=== PATIENT | female | born 1990 | race Caucasian/White ===

== ENCOUNTER 2017-08-24 20:44 | Emergency (ER) | payer BC, SELFPAY | END 2017-08-24 23:06 | disposition home or self-care (01) | PROVIDERS: Emergency Provider Emergency Medicine; Visit Provider Emergency Medicine | DX: O20.0 Threatened abortion (principal); D64.9 Anemia, unspecified | CPT/HCPCS: 80053; 81001; 81025; 84702; 85025; 86850; 86900; 86901; 87086; 99283 ==

== ENCOUNTER → 2017-08-26 | Outpatient (CLI) | payer BC, SELFPAY | PROVIDERS: Visit Provider Nurse Practitioner Obstetrics & Gynecology | DX: Z32.00 Encounter for pregnancy test, result unknown (principal) | CPT/HCPCS: 36415; 84702 ==

== ENCOUNTER → 2017-10-26 12:38 | Outpatient (CLI) | payer BC, SELFPAY ==
[2017-10-26 13:08] LABS: Basophils % 0.4 % (0.1-2.0); Eosinophils % 0.4 % (0.1-12.0); Hematocrit 39.3 % (37.0-47.0); Hemoglobin 12.9 g/dL (12.2-16.2); Lymphocytes # 1.7 K/mm3 (0.7-4.5); Lymphocytes % 24.2 K/mm3 (10-50); Mean Corpuscular HGB Conc 32.8 g/dL (31.8-35.4); Mean Corpuscular Hemoglobin 28.7 pg (27.0-31.2); Mean Corpuscular Volume 87.4 fl (81-99); Mean Platelet Volume 9.2 fl (7.4-10.4); Monocytes # 0.3 K/mm3 (0.1-1.0); Monocytes % 4.5 % (1.7-9.3); Neutrophils # 4.9 K/mm3 (1.8-7.8); Neutrophils % 70.5 % (37.0-80.0); Platelet Count 226 K/mm3 (142-424); Red Blood Count 4.49 M/mm3 (4.20-5.40); Red Cell Distribution Width 12.5 % (11.5-17.5)
[2017-10-27 07:15] LABS: HIV Screen 4th Generation wRfx Non Reactive (Non Reactive)
[2017-10-27 10:39] LABS: Hepatitis B Surface Antigen Negative (Negative); Hepatitis C Antibody <0.1 s/co ratio (0.0-0.9); Rapid Plasma Reagin Ab Titer Non Reactive (NonRea<1:1); Rubella Antibodies, IgG 1.39 index (Immune >0.99)
== END ==
PROVIDERS: PCP Internal Medicine Adolescent Medicine; Visit Provider Nurse Practitioner Obstetrics & Gynecology
DX: Z34.90 Encounter for supervision of normal pregnancy, unspecified, unspecified trimester (principal)
CPT/HCPCS: 36415; 85025; 86592; 86703; 86762; 86850; 87340; 87380; G0432

== ENCOUNTER → 2017-11-02 14:01 | Outpatient (CLI) | payer BC, SELFPAY ==
--- NOTE | 2017-11-02 14:10 | US_ITS ---
US OB transvaginal HISTORY: ITS.REASON: US OB- Dates ORDERING PHYSICIAN: Gigi Edmonds MD PATIENT AGE: 27 years COMPARISON: None FINDINGS: An intrauterine gestational sac is present with a pole with a crown-rump length of 0.36cm correlating to gestational age of 6w1d. heart tones are present with an FHR of 117 bpm's. Yolk sac is noted. . Adnexa: Unremarkable. IMPRESSION: Live intrauterine gestation at 6 weeks 1 day with an estimated due date of 06/27/2018
== END ==
PROVIDERS: PCP Internal Medicine Adolescent Medicine; Visit Provider Nurse Practitioner Obstetrics & Gynecology
DX: O26.841 Uterine size-date discrepancy, first trimester (principal)
CPT/HCPCS: 76830

== ENCOUNTER → 2017-12-23 17:48 | Outpatient (REF) | payer BC, SELFPAY ==
[2017-12-26 20:10] LABS: Neisseria gonorrhoeae, NAA Negative (Negative)
== END ==
LOC: LAB 17:48
PROVIDERS: Visit Provider Nurse Practitioner Obstetrics & Gynecology
DX: Z34.90 Encounter for supervision of normal pregnancy, unspecified, unspecified trimester (principal)
CPT/HCPCS: 87491; 87591

== ENCOUNTER → 2018-01-18 15:58 | Outpatient (CLI) | payer BC, SELFPAY ==
[2018-01-22 01:08] LABS: AFP Value 39.1 ng/mL (.); DIA MoM 1.07 (.); DIA Value 174.88 pg/mL (.); DSR (Second Trimester) 1 IN 6546 (.); Gest. Age on Collection Date 17.3 WEEKS (.); Maternal Age At EDD 26.9 yr (.); OSBR Risk 1 IN 10000 (.); Results Report (.); hCG Value 29730 mIU/mL (.); uE3 Value 1.28 ng/mL (.)
[2018-01-22 20:09] LABS: Gestat. Age Based On EDD (.)
== END ==
PROVIDERS: PCP Internal Medicine Adolescent Medicine; Visit Provider Nurse Practitioner Obstetrics & Gynecology
DX: Z34.90 Encounter for supervision of normal pregnancy, unspecified, unspecified trimester (principal)
CPT/HCPCS: 36415; 82106

== ENCOUNTER → 2018-02-08 12:48 | Outpatient (CLI) | payer BC, SELFPAY ==
--- NOTE | 2018-02-08 12:50 | US_ITS ---
US OB /maternal detail: INDICATION: ITS.REASON: US OB Complete ORDERING PHYSICIAN: Gigi Edmonds MD PATIENT AGE: 27 years TECHNIQUE: ultrasound transabdominal scanning. COMPARISON: No previous relevant studies. FINDINGS: Single viable intrauterine gestation. Breech position. Placenta: Anterior placenta grade 1. There is average amount fluid. The cervix appears satisfactory. Closed and measuring 3 cm in length. Complete survey performed and was unremarkable on the submitted images as in PACS. No discrete anomalies identified on survey imaging by technologist. Active fetus. Three-vessel cord with satisfactory umbilical cord insertion. 4- chamber heart noted. Survey of brain & ventricles unremarkable. Face and neck survey unremarkable. Diaphragm and chest views unremarkable. Abdomen: Both kidneys noted and unremarkable. Stomach noted and satisfactory. Spine: Survey of the spine satisfactory with no anomalies identified nor imaged. Both arms and legs noted. Amniotic Fluid: Adequate. Maternal adnexa: No significant findings. Measurements: Average ultrasound age 20w3d. Gestational Age 20w1d. Estimated due date by ultrasound age 1006/25/2018. Estimated weight 353 grams. 62nd percentile based on estimated due date BPD = 20w2d OFD = 21w5d HC = 20w3d AC = 21w0d FL = 20w0d Heart Rate = 142 bpm Cerebellum = 20w0d Humerus = 20w6d HC/AC is 1.14 (1.09-.126). CI is 72% (70-86%). FL/BPD is 68%. FL/AC is 20%. IMPRESSION: Single live fetus in breech presentation with average ultrasound age of 20 weeks and 3 days. No obvious anomalies. All parameters correlate. Please see above for detail
== END ==
PROVIDERS: PCP Internal Medicine Adolescent Medicine; Visit Provider Nurse Practitioner Obstetrics & Gynecology
DX: Z36.0 Encounter for antenatal screening for chromosomal anomalies (principal)
CPT/HCPCS: 76811

== ENCOUNTER 2018-04-07 10:49 | Outpatient (CLI) | payer BC, SELFPAY ==
[2018-04-07 10:59] VITALS: BP 113/72; PULSE 84; RESP 18; TEMP 36.2; O2SAT 100; BMI 29.0
[2018-04-07 11:11] LABS: Microscopic, Urine URINE MICROSCOPIC (MICROSCOPIC)
[2018-04-07 11:25] LABS: Appearance,Urine CLEAR (Clear); Bilirubin,Urine Negative (Negative); Blood, Urine Negative (Negative); Color,Urine YELLOW (Yellow); Glucose,Urine (UA) Negative (Negative); Ketones,Urine Negative (Negative); Leukocyte Esterase,Urine Negative (Negative); Nitrate,Urine Negative (Negative); PH,Urine 7.5 (5.0-8.5); Protein,Urine Negative (Negative); Urobilinogen,Urine 0.2 EU/dl (0.2)
--- NOTE | 2018-04-07 11:30 | HMH.ACPN2 ---
Internal Medicine - PN: Subj *Date: 04/07/18 *Time: 11:30 Interval history: She is 28 weeks gestational age feeling pelvic pressure. She denies any contractions. Her urinalysis is negative for a urinary tract infection. The nonstress test is reactive. Exam Vital signs and Labs for Last 24 Hours: Temp Pulse Resp BP Pulse Ox 97.2 F L 84 18 113/72 100 04/07/18 10:59 04/07/18 10:59 04/07/18 10:59 04/07/18 10:59 04/07/18 10:59 Laboratory Results - last 24 hr 04/07/18 11:01: Urine Color Yellow, Urine Appearance Clear, Urine pH 7.5, Ur Specific [place] 1.010, Urine Protein Negative, Urine Glucose (UA) Negative, Urine Ketones Negative, Urine Blood Negative, Urine Nitrate Negative, Urine Bilirubin Negative, Urine Urobilinogen 0.2, Ur Leukocyte Esterase Negative I & O for Last 24 hours: Intake & Output 04/04/18 04/05/18 04/06/18 04/07/18 11:59 11:59 11:59 11:59 Weight 164 lb - Constitutional no acute distress Assessment and Plan (1) False labor before 37 completed weeks of gestation Current visit: Yes Status: Acute Category: Medical Code(s): O47.00 - False labor before 37 completed weeks of gestation, unspecified trimester - Assessment and plan all Dx Assessment and Plan for all problems:: Since she is not having contractions and she has not changed her cervix we will go ahead and send her home. She will follow-up with me in 2 weeks time.
[2018-04-07 11:57] LABS: WBC,Urine Occasional #/hpf (0-3)
[2018-04-07 11:58] LABS: Bacteria,Urine Trace /lpf; Squamous Epithelial Cell,Urine TNTC #/hpf (0-5)
== END 2018-04-07 11:35 | disposition home or self-care (01) ==
LOC: OBOUT 10:50 → OB 10:52
PROVIDERS: PCP Nurse Practitioner Obstetrics & Gynecology; Visit Provider Nurse Practitioner Obstetrics & Gynecology
DX: O26.893 Other specified pregnancy related conditions, third trimester (principal); Z3A.28 28 weeks gestation of pregnancy; R10.2 Pelvic and perineal pain
CPT/HCPCS: 59025; 81001

== ENCOUNTER → 2018-05-31 17:43 | Outpatient (REF) | payer BC, SELFPAY | LOC: LAB 17:43 | PROVIDERS: Visit Provider Nurse Practitioner Obstetrics & Gynecology | DX: Z34.90 Encounter for supervision of normal pregnancy, unspecified, unspecified trimester (principal); Z3A.36 36 weeks gestation of pregnancy | CPT/HCPCS: 86403 ==

== ENCOUNTER 2018-06-06 20:18 | Observation (INO) ==
[2018-06-06 20:35] LABS: Microscopic, Urine URINE MICROSCOPIC (MICROSCOPIC)
[2018-06-06 20:38] LABS: Appearance,Urine CLEAR (Clear); Bilirubin,Urine Negative (Negative); Blood, Urine Negative (Negative); Color,Urine YELLOW (Yellow); Glucose,Urine (UA) Negative (Negative); Ketones,Urine Negative (Negative); Leukocyte Esterase,Urine Negative (Negative); PH,Urine 7.5 (5.0-8.5); Protein,Urine Negative (Negative); Specific Gravity, Urine 1.015 (1.005-1.030); Urobilinogen,Urine 0.2 EU/dl (0.2)
[2018-06-06 20:59] VITALS: BP 128/100
--- NOTE | 2018-06-10 13:20 | H&P/Discharge Summary ---
General - General Admission date:: 06/06/18 Discharge date: 06/07/18 *Admission Date: 06/06/18 *Chief complaint: Contraction *History of present illness: She is a 27-year-old lady at 37 weeks who complains of contractions. She was having irregular contractions and as result of that was admitted overnight. [facility] History I have reviewed the patient's past medical history: Yes Other Surgeries: Yes: No Previous Surgery. No: Amputation: No Fractures: No - *Social History Smoking Status: Never smoker Alcohol Intake: never Substance Use Type: denies use *Family Hx:: Hypertension Para: 2 Review of Systems - Review of Systems Review of systems:: pertinent systems reviewed and negative unless documented below Exam Vital signs and Labs for Last 24 Hours: Temp Pulse Resp BP Pulse Ox 98.2 F 96 H 19 128/100 H 95 06/06/18 20:55 06/06/18 20:55 06/06/18 20:55 06/06/18 20:55 06/06/18 20:55 Laboratory Results - last 24 hr 06/06/18 20:25: Urine Color Yellow, Urine Appearance Clear, Urine pH 7.5, Ur S pecific [place] 1.015, Urine Protein Negative, Urine Glucose (UA) Negative, Urine Ketones Negative, Urine Blood Negative, Urine Nitrate Negative, Urine Bilirubin Negative, Urine Urobilinogen 0.2, Ur Leukocyte Esterase Negative, Ur Squamous Epith Cells 10-20 I & O for Last 24 hours: Intake & Output 06/04/18 06/05/18 06/06/18 06/07/18 11:59 11:59 11:59 11:59 Weight 182 lb - Constitutional no acute distress - *Routine HEENT Exam Head: Present: normocephalic Eye: Present: EOMI, PERRL ENT: Present: mucous membranes moist - *Routine Neck Exam Present: supple, full ROM - *Routine Respiratory Exam Absent: accessory muscle use (good air entry bilaterally), wheezes, crackles - *Routine Cardiovascular Exam Present: RRR. Absent: murmur - *Routine Abdominal Exam Present: soft, normoactive bowel sounds. Absent: tenderness, rebound, guarding, mass - *Routine Rectal Exam Patient deferred: visual exam, digital exam - *Routine Exam Patient deferred: external exam, groin exam, perineal exam - *Routine Extremities Exam Present: full ROM. Absent: cyanosis, edema, calf tenderness - *Routine Skin Exam Present: intact (good color) - *Routine Neurological Exam Present: alert, oriented X3 - Routine Psychiatric Exam Present: normal affect Hospital Course Hospital Course: She received IV fluids as well as 1 dose of Brethine. She settled her contractions. She found to be 3 cm dilated for percent Station -2. Her contractions have now stopped and we are discharging her home to follow-up with me next week. Results Labs on day of discharge: Labs from last 24 hours 06/06/18 20:25 Urine Color Yellow Urine Appearance Clear Urine pH 7.5 Ur Specific [place] 1.015 Urine Protein Negative Urine Glucose (UA) Negative Urine Ketones Negative Urine Blood Negative Urine Nitrate Negative Urine Bilirubin Negative Urine Urobilinogen 0.2 Ur Leukocyte Esterase Negative Ur Squamous Epith Cells 10-20 DS: Diagnosis - Discharge Diagnosis (1) False labor before 37 completed weeks of gestation Status: Acute Discharge Medications - Medications for Discharge Home Medication List at Discharge: No Action pantoprazole 20 mg tablet,delayed release 20 mg PO DAILY 30 Days #30 tab pediatric multivitamin no.76 chewable tablet 1 tab PO DAILY ferrous sulfate 325 mg (65 mg iron) tablet,delayed release 325 mg PO DAILY Disposition Disposition: Home, Self-Care
== END 2018-06-07 09:30 | disposition home or self-care (01) ==
LOC: OBOUT 20:18 → OB 20:18
PROVIDERS: ADMIT Nurse Practitioner Obstetrics & Gynecology; ATTEND Nurse Practitioner Obstetrics & Gynecology
CPT/HCPCS: 59025; 81001; 96360; 96372; G0378

== ENCOUNTER 2018-06-22 02:30 | Inpatient (IN) ==
[2018-06-22 05:48] LABS: Basophils % 0.4 % (0.1-2.0); Eosinophils # 0.1 K/mm3 (0.0-0.4); Eosinophils % 0.6 % (0.1-12.0); Hemoglobin 10.5 g/dL (12.2-16.2); Lymphocytes # 2.4 K/mm3 (0.7-4.5); Mean Corpuscular Volume 78.1 fl (81-99); Mean Platelet Volume 9.9 fl (7.4-10.4); Monocytes # 0.6 K/mm3 (0.1-1.0); Monocytes % 5.2 % (1.7-9.3); Neutrophils # 7.9 K/mm3 (1.8-7.8); Neutrophils % 71.8 % (37.0-80.0); Platelet Count 218 K/mm3 (142-424); Red Blood Count 4.22 M/mm3 (4.20-5.40); Red Cell Distribution Width 15.7 % (11.5-17.5); White Blood Count 11.1 K/mm3 (4.8-10.8)
[2018-06-22 08:03] VITALS: BP 123/83
--- NOTE | 2018-06-22 08:24 | History & Physical Report ---
OB - H&P: HPI Antepartum - History of Present Illness Chief complaint: Term , irregular contractions History of present illness: She is a 27-year-old 3 para 2 who is 39+ weeks gestational age. She is been having irregular contractions and was found to be 3-4 cm in my office. As result of that we elected to augment her labor. - History of Present Criteria for establishing EDC:: LMP confirmed by 1st trimester US care: good care Ultrasounds: normal 1st trimester US, normal mid trimester US Obstetrical complications: none [facility] History I have reviewed the patient's past medical history: Yes Other Surgeries: Yes: No Previous Surgery. No: Amputation: No Fractures: No - *Social History Smoking Status: Never smoker Alcohol Intake: never Substance Use Type: denies use *Family Hx:: Hypertension Para: 2 Review of Systems - Review of Systems Review of systems:: pertinent systems reviewed and negative unless documented below Meds Home Medications Medication Instructions Recorded Confirmed Type pediatric multivitamin no.76 1 tab PO DAILY 02/16/18 06/22/18 History chewable tablet pantoprazole 20 mg tablet,delayed 20 mg PO DAILY 30 Days #30 tab 05/11/18 06/22/18 History release ferrous sulfate 325 mg (65 mg 325 mg PO DAILY 06/06/18 06/22/18 History iron) tablet,delayed release Allergies Allergy/AdvReac Type Severity Reaction Status Date / Time No Known Allergies Allergy Verified 06/14/18 15:42 NO KNOWN ALLERGIES - NKA Allergy Mild Uncoded 06/14/18 15:42 OB - H&P: Exam - Physical Exam Vital signs: Temp Pulse Resp BP Pulse Ox 98.8 F 84 18 123/83 98 06/22/18 07:20 06/22/18 07:20 06/22/18 07:20 06/22/18 07:20 06/22/18 07:20 - Constitutional no acute distress - Routine HEENT Exam Head: Present: normocephalic Eye: Present: EOMI, PERRL ENT: Present: mucous membranes moist - Routine Neck Exam Present: supple, full ROM - Routine Respiratory Exam Absent: accessory muscle use (good air entry bilaterally), respiratory distress, wheezes, crackles - Routine Cardiovascular Exam Present: RRR. Absent: murmur - Routine Abdominal Exam Present: soft, normoactive bowel sounds. Absent: tenderness, distended, guarding - Routine Rectal Exam Patient deferred: visual exam, digital exam - Routine Exam Patient deferred: external exam, groin exam, perineal exam - Routine Extremities Exam Present: full ROM. Absent: cyanosis, edema - Routine Skin Exam Present: intact. Absent: cyanosis - Routine Neurological Exam Present: alert, oriented X3 - Routine Psychiatric Exam Present: normal affect OB - Results - Labs Labs: Short CBC 06/22/18 Range/Units 05:38 WBC 11.1 H (4.8-10.8) K/mm3 Hgb 10.5 L (12.2-16.2) g/dL Hct 33.0 L (37.0-47.0) % Plt Count 218 (142-424) K/mm3 OB - A/P Antepartum (1) Normal delivery Current visit: Yes Status: Acute - Additional Plan Planning to breastfeed?: Yes Plan: other Additional Information:: She is now 39+ weeks gestational age and has been admitted on a couple of occasions with labor and irregular contractions. She is 4-5 cm now and we have just ruptured her membranes. We expect a vaginal delivery.
--- NOTE | 2018-06-22 10:22 | Progress Note ---
Labor Note - Subjective: Date: 06/22/18 Time: 10:21 regular contraction - Objective: NST:: Reactive Contractions:: every 2-3 minutes Cervical Dilation:: 5 Effacement:: 100% Station: 0 Membranes: artificially ruptured - Fetus: Monitoring?: Yes monitoring type:: Internal and External - Assessment: Labor progressing?: Yes Cephalopelvic disproportion?: No Patient Problems: All Active Problems False labor before 37 completed weeks of gestation (Acute) Normal delivery (Acute) (Acute) - Plan: Anesthesia for epidural?: Yes Continue to labor down?: Yes Plan for ?: No Continue to monitor?: Yes Start pushing?: No
--- NOTE | 2018-06-22 11:45 | Procedure Note ---
- Delivery Note Delivery Date:: 06/22/18 Delivery Time:: 11:33 Anesthesia Type: Epidural Was labor medically induced?: No Infant delivered prior to 39 weeks?: No Infant Gender: Male at 1 minute: 9 at 5 minutes: 9 AF:: Clear fluid Delivery Procedure:: She is a 27-year-old 4 para 2 aborta 1 who was 39+ weeks gestational age. She was having irregular contractions and was found to be 3-4 cm in my office. As result of that we offered her augmentation. She had her membranes ruptured and was augmented with oxytocin. She progressed under labor epidural to full dilation and delivered spontaneously a live born male child at 11:33 AM on the morning of June 19 is an 18. On deliver the head it was noted that there was a loose nuchal cord which was easily reduced. This was followed by the rest of the infant's body atraumatically. The oropharynx and nasopharynx were bulb suctioned. The baby cried spontaneously. The baby was vigorous and we allowed the cord to continue to pulsate for proximally 1 minute. The cord was then doubly clamped and cut. Baby was then placed on the mother's abdomen for further care. The nurses assigned Apgars of 9 at 1 minute and 9 at 5 minutes. We then obtained cord blood as well as cord pH. The patient was to be oxytocin and using gentle traction on the cord and countertraction on the fundus I was able to easily deliver the placenta intact. It had a normal three-vessel cord. There were no perineal or vaginal lacerations. She has O+ blood, she is rubella immune and was group B Streptococcus negative. She plans to breast-feed. Her estimated blood loss was approximately 400 cc. Placental Delivery Description: Spontaneous
--- NOTE | 2018-06-22 11:57 | Progress Note ---
[facility] Anesthesia Checklist - Structural Data Admitted From: Inpatient Planned Operative Procedure/s: labor epidural Consent for Planned Operative Procedure(s) Verified: Yes - Airway Assessment C-Spine Mobility Assessed: Yes TMJ Mobility Assessed: Yes Dentition: Good Dentition - Neurological Assessment Level of Consciousness: Awake, Alert, Appropriate - Anesthesia Plan Anesthesia Risk discussed: Yes Anesthesia Plan: Verified ASA Class: II Anesthesia Type: Epidural [facility] History I have reviewed the patient's past medical history: Yes Other Surgeries: Yes: No Previous Surgery. No: Amputation: No Fractures: No - *Social History Smoking Status: Never smoker Alcohol Intake: never Substance Use Type: denies use *Family Hx:: Hypertension Para: 2
[2018-06-22 14:11] LABS: Microscopic, Urine URINE MICROSCOPIC (MICROSCOPIC)
[2018-06-22 14:22] LABS: Appearance,Urine CLEAR (Clear); Bilirubin,Urine Negative (Negative); Blood, Urine TRACE-L (Negative); Color,Urine YELLOW (Yellow); Glucose,Urine (UA) Negative (Negative); Ketones,Urine Negative (Negative); Leukocyte Esterase,Urine Negative (Negative); PH,Urine 7.5 (5.0-8.5); Protein,Urine Negative (Negative); Urobilinogen,Urine 0.2 EU/dl (0.2)
[2018-06-22 14:34] LABS: Bacteria,Urine Trace /lpf; Squamous Epithelial Cell,Urine Occasional #/hpf (0-5)
[2018-06-23 06:11] LABS: Hematocrit 26.7 % (37.0-47.0)
[2018-06-23 06:17] LABS: Hemoglobin 8.7 g/dL (12.2-16.2)
--- NOTE | 2018-06-23 08:42 | Progress Note ---
Internal Medicine - PN: Subj *Date: 06/23/18 *Time: 08:41 Interval history: She continues to do well. She is eating and drinking and ambulating. She is breast-feeding. Her lochia is normal. Exam Vital signs and Labs for Last 24 Hours: Temp Pulse Resp BP Pulse Ox 98.8 F 84 18 123/83 98 06/22/18 07:20 06/22/18 07:20 06/22/18 07:20 06/22/18 07:20 06/22/18 07:20 Laboratory Results - last 24 hr 06/22/18 09:00: Urine Color Yellow, Urine Appearance Clear, Urine pH 7.5, Ur Specific [place] 1.010, Urine Protein Negative, Urine Glucose (UA) Negative, Urine Ketones Negative, Urine Blood Trace-l, Urine Nitrate Negative, Urine Bilirubin Negative, Urine Urobilinogen 0.2, Ur Leukocyte Esterase Negative, Urine RBC None, Urine WBC 3-5, Ur Squamous Epith Cells Occasional, Urine Bacteria Trace 06/22/18 11:46: Cord ABG pH 7.39 06/23/18 05:38: Hgb 8.7 L D, Hct 26.7 L I & O for Last 24 hours: Intake & Output 06/20/18 06/21/18 06/22/18 06/23/18 11:59 11:59 11:59 11:59 Weight 183 lb Assessment and Plan (1) Normal delivery Current visit: Yes Status: Acute Category: Medical Code(s): O80 - Encounter for full-term uncomplicated delivery - Assessment and plan all Dx Assessment and Plan for all problems:: She is doing well this morning. We will plan to send her home tomorrow.
--- NOTE | 2018-06-23 11:33 | Pharmacy Consult Notes ---
[facility] Pharmacy VTE Monitoring - Patient Demographics Admission date: 06/22/18 Report Date: 06/23/18 Time: 11:33 Allergies/Adverse Reactions: Patient Allergies No Known Allergies Allergy (Verified 06/14/18 15:42) NO KNOWN ALLERGIES - NKA Allergy (Mild, Uncoded 06/14/18 15:42) Height: 1.63 m Weight: 83.007 kg Patient Problems: Current Active Problems Normal delivery (Acute) - VTE Risk Labs: VTE Related Lab Results Hgb 8.7 g/dL (12.2-16.2) L D 06/23/18 05:38 Hct 26.7 % (37.0-47.0) L 06/23/18 05:38 Plt Count 218 K/mm3 (142-424) 06/22/18 05:38 - Prophylaxis VTE Prophylaxis Ordered?: Yes Types of VTE Prophylaxis: TEDS Knee High Location of Applied Device: Bilateral Lower Extremeties - VTE Diagnosis Confirmed Treatment or plan recommended: Continue Current Treatment
--- NOTE | 2018-06-24 08:38 | Discharge Summary ---
General - General Admission date:: 06/22/18 Discharge date: 06/24/18 HPI HPI: She is a 27-year-old 4 para 3 aborta 1 who was 39 and 3 weeks gestational age. She has had labor and was having occasional contractions. As result of that we elected to augment her labor. She was 3-4 cm in my office. Hospital Course Hospital Course: She was started on IV oxytocin and had her membranes ruptured. Under labor epidural she progressed to full dilation and delivered spontaneously a live born male child at 11:33 AM the morning of June 22, 2018. The baby was a liveborn male child weighing 7 pounds 7 ounces and was 20 inches long. He had Apgars of 9 at 1 minute and 9 at 5 minutes. She has done well and has remained afebrile throughout her hospitalization. She is eating and drinking ambulating. She is breast-feeding. Her lochia is minimal. She has O+ blood, she is rubella immune and was group Streptococcus negative. Her multicultural internship is Dr. Penn. She is discharged home to follow-up with me in approximately 2 weeks time. She will continue with [id number] analgesics. She will continue with her vitamins and iron. She was given the usual instructions with respect to limiting her activity, driving and sexual activity. Rhogam Administration: Not Indicated Objective Vital signs: Temp Pulse Resp BP Pulse Ox 98.8 F 84 18 123/83 98 06/22/18 07:20 06/22/18 07:20 06/22/18 07:20 06/22/18 07:20 06/22/18 07:20 no acute distress DS: Diagnosis - Discharge Diagnosis (1) Normal delivery Status: Acute Discharge Plan - Patient Discharge Instructions ACTIVITY: No heavy lifting DIET: continue same diet - Follow up Plan Disposition: Home, Self-Alf Medications: Home Medications Medication Instructions Recorded Confirmed Type pediatric multivitamin no.76 1 tab PO DAILY 02/16/18 06/22/18 History chewable tablet pantoprazole 20 mg tablet,delayed 20 mg PO DAILY 30 Days #30 tab 05/11/18 06/22/18 History release ferrous sulfate 325 mg (65 mg 325 mg PO DAILY 06/06/18 06/22/18 History iron) tablet,delayed release Prescriptions/Medication Reconciliation: Continue pantoprazole 20 mg tablet,delayed release 20 mg PO DAILY 30 Days #30 tab pediatric multivitamin no.76 chewable tablet 1 tab PO DAILY No Action ferrous sulfate 325 mg (65 mg iron) tablet,delayed release 325 mg PO DAILY
== END 2018-06-24 12:45 | disposition home or self-care (01) ==
LOC: OB 05:10
PROVIDERS: ADMIT Nurse Practitioner Obstetrics & Gynecology; ATTEND Nurse Practitioner Obstetrics & Gynecology

== ENCOUNTER → 2018-09-22 17:45 | Outpatient (CLI) | payer BC, SELFPAY ==
[2018-09-24 22:56] LABS: Neisseria gonorrhoeae, NAA Negative (Negative)
== END ==
PROVIDERS: Visit Provider Nurse Practitioner Obstetrics & Gynecology
DX: Z72.51 High risk heterosexual behavior (principal)
CPT/HCPCS: 87491; 87591

== ENCOUNTER → 2018-09-29 14:33 | Outpatient (CLI) | payer BC, SELFPAY ==
--- NOTE | 2018-09-29 14:36 | US_ITS ---
US transvaginal HISTORY: ITS.REASON: US T/V- Abnormal Bleeding ORDERING PHYSICIAN: Gigi Edmonds MD PATIENT AGE: 28 years Comparison: None FINDINGS: UTERUS: The uterus measures 8 x 4 x 5 cm . Combined endometrial thickness is 8 mm. No uterine mass evident. There is a small focus of increased echogenicity within the endometrial canal nonspecific RIGHT OVARY: 3.6 x 3.2 cm with multiple small follicles. LEFT OVARY: 2.2 x 1.8 cm with small follicles. CUL-DE-SAC FLUID: No cul-de-sac fluid apparent OTHER FINDINGS: None IMPRESSION: 1. Essentially unremarkable pelvic ultrasound. 2. Small focus of increased echogenicity in the endometrial region nonspecific possibly due to small area of calcification
== END ==
PROVIDERS: PCP Internal Medicine Adolescent Medicine; Visit Provider Nurse Practitioner Obstetrics & Gynecology
DX: N92.6 Irregular menstruation, unspecified (principal)
CPT/HCPCS: 76830

== ENCOUNTER → 2019-05-13 09:09 | Outpatient (CLI) | payer BC, SELFPAY ==
[2019-05-13 09:35] LABS: Basophils % 0.4 % (0.1-2.0); Eosinophils # 0.1 K/mm3 (0.0-0.4); Eosinophils % 1.1 % (0.1-12.0); Hematocrit 45.1 % (37.0-47.0); Hemoglobin 14.3 g/dL (12.2-16.2); Lymphocytes # 1.7 K/mm3 (0.7-4.5); Lymphocytes % 33.5 % (10-50); Mean Corpuscular HGB Conc 31.7 g/dL (31.8-35.4); Mean Corpuscular Hemoglobin 28.8 pg (27.0-31.2); Monocytes # 0.2 K/mm3 (0.1-1.0); Monocytes % 3.8 % (1.7-9.3); Neutrophils # 3.1 K/mm3 (1.8-7.8); Neutrophils % 61.2 % (37.0-80.0); Platelet Count 204 K/mm3 (142-424); Red Blood Count 4.96 M/mm3 (4.20-5.40); Red Cell Distribution Width 12.1 % (11.5-17.5)
[2019-05-13 10:24] LABS: Alanine Aminotransferase 22 U/L (12-78); Albumin Level 3.9 gm/dL (3.4-5.0); Albumin/Globulin Ratio 1.2 (1.1-1.8); Alkaline Phosphatase 88 U/L (46-116); Anion Gap 12.2 mEq/L (5-15); Aspartate Amino Transferase 16 U/L (15-37); Bilirubin,Total 0.4 mg/dL (0.2-1.0); Blood Urea Nitrogen 12 mg/dL (7-18); Calcium 9.2 mg/dL (8.5-10.1); Carbon Dioxide 29 mmol/L (21.0-32.0); Chloride 104 mmol/L (98-107); Creatinine,Serum 0.79 mg/dL (0.55-1.02); Estimated Glomerular Filt Rate 87 ml/min (>60); GFR (African American) 106 ML/MIN (>60); Globulin 3.2 gm/dl (1.3-3.2); Glucose 84 mg/dL (74-106); Magnesium 1.7 mg/dL (1.4-2.2); Potassium 4.2 mmoL/L (3.5-5.1); Sodium 141 mmol/L (136-145); Thyroid Stimulating Hormone 1.32 uIU/ml (0.358-3.740); Total Protein,Serum 7.1 gm/dL (6.4-8.2)
== END ==
PROVIDERS: Visit Provider Nurse Practitioner Family
DX: R00.2 Palpitations (principal)
CPT/HCPCS: 36415; 80053; 83735; 84439; 84443; 85025

== ENCOUNTER 2021-08-22 04:35 | Outpatient (CLI) | payer OTHER, SELFPAY ==
[2021-08-22 04:59] VITALS: BMI 26.9
[2021-08-22 05:10] LABS: Microscopic, Urine URINE MICROSCOPIC (MICROSCOPIC)
[2021-08-22 05:12] LABS: Appearance,Urine CLEAR (Clear); Bilirubin,Urine Negative (Negative); Blood, Urine Negative (Negative); Color,Urine YELLOW (Yellow); Glucose,Urine (UA) Negative (Negative); Ketones,Urine Negative (Negative); Leukocyte Esterase,Urine Negative (Negative); Nitrate,Urine Negative (Negative); PH,Urine 6.5 (5.0-8.5); Protein,Urine Negative (Negative); Urobilinogen,Urine 0.2 EU/dl (0.2)
[2021-08-22 05:18] VITALS: BP 112/71; PULSE 89; RESP 18; TEMP 36.8; O2SAT 97; BMI 26.9
[2021-08-22 05:19] LABS: Bacteria,Urine Trace /lpf; WBC,Urine Occasional #/hpf (0-3)
[2021-08-22 05:26] LABS: Barbiturates Screen,Urine Negative ng/ml (<200); Benzodiazepines Screen,Urine Negative ng/ml (<200)
[2021-08-22 05:27] LABS: Amphetamine/Metha Screen,Urine Negative ng/ml (<1000)
[2021-08-22 05:28] LABS: Cannabinoid Screen,Urine Negative ng/ml (<50); Cocaine Screen,Urine Negative ng/ml (<300)
[2021-08-22 05:29] LABS: Methadone Screen,Urine Negative ng/ml (<300); Phencyclidine Screen,Urine Negative ng/ml (<25)
[2021-08-22 05:30] LABS: Opiate Screen,Urine Negative ng/ml (<300)
== END 2021-08-22 06:12 | disposition home or self-care (01) ==
LOC: OBOUT 04:46 → OB 04:47
PROVIDERS: Visit Provider Nurse Practitioner Obstetrics & Gynecology
DX: O26.892 Other specified pregnancy related conditions, second trimester (principal); Z3A.24 24 weeks gestation of pregnancy; R10.2 Pelvic and perineal pain
CPT/HCPCS: 80305; 81001; G0463

== ENCOUNTER 2024-02-03 13:27 | Outpatient (CLI) | payer OTHER, SELFPAY ==
--- NOTE | 2024-02-03 13:31 | US_ITS ---
PROCEDURE: US TRANSVAGINAL CLINICAL INDICATION: abnormal uterine bleeding COMPARISON: US TRANVAG US transvaginal from 09/29/2018 FINDINGS: Transvaginal sonographic images of the pelvis were obtained. UTERUS: 9.5cm x 6.0cmx 4.5cm anteverted with a combined endometrial thickness of 16.7mm. The anterior myometrium appears heterogenous. It appears thicker than the posterior myometrium but no discrete fibroid. LEFT OVARY: 2.6 cmx1.8 cmx1.5cm with a volume of 3.7ml. There are multiple small peripheral follicles. RIGHT OVARY: 3.7cmx 2.5cmx2.3cm with a volume of 11.4ml. There is a corpus luteum in the right ovary that measures 1.4 cm x 1.3 cm x 1.4 cm. There are multiple small follicles. Both ovaries are seen and appear normal. Doppler flow to both ovaries are seen. There is no fluid in the cul-de-sac. IMPRESSION: 1. Anteverted uterus, upper limits of normal in size. 2. The anterior myometrium appears heterogenous and thicker than the posterior myometrium. No discrete fibroids. 3. The endometrium is premenstrual and measures 16.7 mm. 4. Both ovaries are seen and appear multi-cystic. A corpus luteum is seen in the right ovary. 5. No fluid in the cul-de-sac. Dictated by: Gigi Edmonds MD 02/03/2024 17:15 Gigi Edmonds MD in OV 02/03/2024 17:15
== END 2024-02-03 23:59 | disposition home or self-care (01) ==
LOC: RAD 13:28
PROVIDERS: PCP Internal Medicine Adolescent Medicine; Visit Provider Nurse Practitioner Obstetrics & Gynecology
DX: N92.6 Irregular menstruation, unspecified (principal); N93.9 Abnormal uterine and vaginal bleeding, unspecified
CPT/HCPCS: 76830

== ENCOUNTER 2025-06-12 10:48 | Outpatient (CLI) | payer OTHER, SELFPAY ==
--- OUTSIDE RECORDS SUMMARY | 2025-06-12 10:56 | XMS_ITS | Clinical Summary ---
Author Organization [facility] Address [address] [place] [id number] Care Team Providers Care Basket Person Name Role Phone Unavailable Primary Care Provider Unavailabl e Source Comments [facility] is fully rolled out with thefollowing exceptions:General Clinical Research [facility] Social History Tobacco Use Types Packs/Day Years Used Date Smoking Tobacco: Never Assessed Comments Unknown Sex and Gender Information Value Date Recorded Sex Assigned at Not on file Legal Sex Female 10:44 AM EDT Gender Identity Not on file Sexual Orientation Not on file Plan of Treatment Health Maintenance Due Date Last Done Comments MMR IMMUNIZATION (1 of 1 - S tandard series) 1992 DTAP/Tdap/Td IMMUNIZATION (1 - Tdap) 1998 VARICELLA IMMUNIZATION (1 of 2 - 13+ 2-dose series) 2004 HEPATITIS B IMMUNIZATION (1 of 3 - 19+ 3-dose series) 2010 HPV IMMUNIZATION (1 - 3-dose SCDM series) 2018 AMB SEASONAL FLU VACCINE (#1) 05/01/2025 COVID-19 Vaccine (2023-2 5 season) 2025 HIB IMMUNIZATION Aged Out No longer e ligible based on patient's age to complete this topic IPV IMMUNIZATION Aged Out No longer e ligible based on patient's age to complete this topic MCV4 IMMUNIZATION Aged Out No longer eligible based on patient's age to complete this topic MENINGOCOCCAL B VACCINE Aged Out No l onger eligible based on patient's age to complete this topic PNEUMOCOCCAL IMMUNIZATION Aged Out No longer eligible based on patient's age to complete this topic Respiratory Syncytial Virus (RSV) <20mo Aged Out No longer eligible b ased on patient's age to complete this topic Insurance [employer]
--- OUTSIDE RECORDS SUMMARY | 2025-06-12 10:56 | XMS_ITS | Encounter Summary ---
Author Organization Healthcare Address [address] [place] [address] Care Team Providers Care Wind Tunnel Engineer Name Role Phone Pcp, No Primary Care Provider Unavailabl e Encounter Details Date Type Department Care Team (Late st Contact Info) Description 06/03/2025 Immunization [facility] [address] [place] [address] Nandini Mejia CHARGE AUDITOR & ACUTE CARE SURG [facility] ADMIN Need for immunization against influenza (Primary Dx) Social History Tobacco Use Types Packs/Day Years Used Date Smoking Tobacco: Never Assessed Humiliation, Afraid, Rape, and Kick questionnair e Answer Date Recorded Within the last year, have y ou been afraid of your partner or ex-partner? No 08/21/2023 Within the last year, have y ou been humiliated or emotionally abused in other ways by your partner or ex-partner? No Within the last year, have y ou been kicked, hit, slapped, or otherwise physically hurt by your partner or ex-partner? No 08/21/2023 Within the last year, have y ou been raped or forced to have any kind of sexual activity by your partner or ex-partner? No 08/21/2023 Hunger Vital Sign Answer Date Recorded Within the past 12 months, y ou worried that your food would run out before you got the money to buy more. Never true 08/21/20 23 Within the past 12 months, t he food you bought just didn't last and you didn't have money to get more. Never true 08/21/2023 PRAPARE - Transportation Answer Date Re corded In the past 12 months, has l ack of transportation kept you from medical appointments or from getting medications? No 08/01 In the past 12 months, has l ack of transportation kept you from meetings, work, or from getting things needed for daily living? No 08/21/2023 Housing Stability Vital Sign Answer Dalton e Recorded In the last 12 months, was t here a time when you were not able to pay the mortgage or rent on time? No 08/21/2023 In the last 12 months, how many places have you lived? 3 08/21/2023 In the last 12 months, was t here a time when you did not have a steady place to sleep or slept in a usp (including now)? No 08/21/2023 Utilities Answer Date Recorded In the past 12 months has th e electric, gas, oil, or water company threatened to shut off services in your home? No 08/21/2023 Comments Unknown Sex and Gender Information Value Date Recorded Sex Assigned at Not on file Legal Sex Female 6:02 PM EDT Gender Identity Not on file Sexual Orientation Not on file documented as of this encounter Plan of Treatment Not on file documented as of this encounter Visit Diagnoses Diagnosis Need for immunization against influenza- Primary Need for prophylactic vaccination and inoculation against influenza documented in this encounter Additional Health Concerns Assessment Noted Time A Body Mass Index follow-up plan has been documented for the patient 08/21/2023 3:43 PM EST documented as of this encounter Care Teams Wind Tunnel Engineer Relationship Specialty Start Date End Date Pcp, No [address] [place] [address] PCP - General Family Medicine 03/12/23 documented as of this encounter
--- OUTSIDE RECORDS SUMMARY | 2025-06-12 10:56 | XMS_ITS | Clinical Summary ---
Author Organization [facility] Address [address] [place] [address] Care Team Providers Care President Financial Institution Name Role Phone Pcp, No Primary Care Provider Unavailabl e Allergies No known active allergies Encounters Date Type Department Care Team Description 06/03/2025 Immunization [facility] Vaccine [facility] [address] [place] [address] Nandini Mejia, RN Need for immunization against influenza (Primary Dx) from Last 3 Months Immunizations Immunization Administration Dates Next Due DTP 12/31/1992, 2,1991,1991 DTaP, Unspecified 08/12/1995 HPV, Quadrivalent 01/09/2009,10/03/2008,07/12/20 08 Hep B, Adolescent or Pediatric 10/03/1997,1996,06/20/1996 HiB, unspecified 11/26/1992,1991, 2 Influenza, injectable, quadrivalent 07/20/2015 Influenza, injectable, quadr ivalent, preservative free 08/21/2023 Influenza, seasonal, injecta ble, preservative free 06/03/2025 MMR 06/20/1996,11/26/1992 Polio, Unspecified 08/12/1995, 3,1991,1991 TD (adult), 2 Lf tetanus tox oid, preservative free, adsorbed 04/12/2003 Tdap 03/12/2023,02/25/2013 Varicella 04/16/2023,02/25/2022 Social History Tobacco Use Types Packs/Day Years [...] place to sleep or slept in a mcfp (including now)? No 08/21/2023 Utilities Answer Date [...] Health Maintenance Due Date Last Done Comments [facility]-Depression Screening 1991 [facility]-HIV Screening 1991 [facility]-Hepatitis C Screening 1991 [facility]-/Child/Adol SDOH Screenings 1991 [facility]- SDOH Screenings 2009 [facility]-Adult SDOH Screenings 2009 [facility]-Pap Smear 2012 [facility]-Cervical Cancer Screening 2021 [facility]-HPV/Cotest 2021 [id number] Vaccine (1 - 2023- season) 2025 [facility]-DTaP,Tdap,and Td Vaccines (8 - Td or Tdap) 03/12/2033 03/12/2023, 02/25/2013, 04/12/2003, Additional history exists [facility]-Zoster Vaccines (1 of 2) 2041 04/16/2023, 02/25/2022 [facility]-HIB Vaccines Completed 11/26/1992, , 1991 [facility]-IPV Vaccines Aged Out 08/12/1995, , 1991, Additional history exists No longer eligible based on patient's age to complete this topic [facility]-Hepatitis B Vaccines Completed 998, 03/15/1997, 06/20/1996 HPV Vaccines Completed 01/09/2009, 10/2008, 07/12/2008 [facility]-Varicella Vaccines Completed 04/16/2023, 2021 [facility]-Influenza Vaccine Completed 06/03/2025 , 08/21/2023, 07/20/2015 [facility]-Hepatitis A Vaccines Aged Out No longer eligible based on patient's age to complete this topic [facility]-Pneumococcal Vaccine: Pediatrics (0 to 5 Years) and At-Risk Patients (6 to 49 Years) Aged Out No longer eligible based on patient's age to complete this topic [facility]-Rotavirus Vaccines Aged Out No lo nger eligible based on patient's age to complete this topic Care Teams President Financial Institution Relationship Specialty Start Date End Date Pcp, No [address] [place] [address] PCP - General Family Medicine 03/12/23
[2025-06-12 12:44] LABS: Hepatitis C Ab Qual. W/ RFX NEGATIVE (Negative)
[2025-06-13 06:11] LABS: Hepatitis B Surface Antigen Negative (Negative)
[2025-06-13 10:30] LABS: RPR W/RFX Titers Nonreactive (Nonreactive)
[2025-06-17 15:28] LABS: Atopobium vaginae NOTORDERABLE Low - 0 Score (.); BVAB2 Low - 0 Score (.); Candida albicans NAA Negative (Negative); Candida glabrata Negative (Negative); HSV 1 NAA Negative (Negative); HSV 2 NAA Negative (Negative)
== END 2025-06-12 23:59 | disposition home or self-care (01) ==
LOC: LAB 10:49
PROVIDERS: PCP Internal Medicine Adolescent Medicine; Visit Provider Obstetrics & Gynecology
DX: N89.8 Other specified noninflammatory disorders of vagina (principal)
CPT/HCPCS: 36415; 86592; 86803; 87340; 87389; 87491; 87529; 87591; 87661; 87798; 87801